=== PATIENT | female | born 1975 | race Caucasian/White ===

== ENCOUNTER 2019-02-15 08:21 | Emergency (ER) | payer MEDICAID ==
[2019-02-15] MEDS ORDERED: LORazepam 2 MG/ML SDV IM ONE (09:03)
[2019-02-15] MEDS ORDERED: Ketorolac 60 MG/2 ML SDV IM ONE (09:03)
--- NOTE | 2019-02-15 09:08 | EDM.PDOC ---
ED HPI GENERAL MEDICAL PROBLEM - General Chief Complaint: Lower Extremity Injury/Pain Stated Complaint: KNEE PAIN Time Seen by Provider: 02/15/19 09:01 Source of Information: Reports: Patient, Family, Provider, RN Notes Reviewed History Limitations: Reports: No Limitations - History of Present Illness INITIAL COMMENTS - FREE TEXT/NARRATIVE: 43-year-old female presents to emergency department today complaint right knee pain, she initially presented to the walk-in clinic Was called by the providers walking clinic felt he could not get her pain under control was subsequently transferred to the emergency department. She states she's had pain in this leg for about a week she does not recall any particular trauma may have twisted it this morning getting out of bed the pain has not been this severe for a week she was using a knee brace which did seem to help and then it got reactivated this morning difficult for her to bear weight Right Knee Pain Score (Numeric/FACES): 10 - Related Data Allergies Allergy/AdvReac Type Severity Reaction Status Date / Time No Known Allergies Allergy Verified 02/15/19 08:52 Home Meds: Home Meds Loratadine 10 mg PO DAILY 02/15/19 [History] predniSONE [Prednisone] 20 mg PO ASDIRECTED 02/15/19 [History] Past Medical History Psychiatric History: Reports: Depression Social & Family History - Tobacco Use Smoking Status *Q: Current Every Day Smoker Years of Tobacco use: 30 Packs/Tins Daily: 1 - Caffeine Use Caffeine Use: Reports: Coffee, Soda - Recreational Drug Use Recreational Drug Use: Yes Recreational Drug Type: Reports: Marijuana/Hashish Review of Systems - Review of Systems Review Of Systems: See Below Musculoskeletal: Reports: Joint Pain Neurological: Reports: No Symptoms ED EXAM, GENERAL - Physical Exam Exam: See Below Free Text/Narrative:: Examination of the right knee I don't appreciate any erythema there is no edema noted pedal pulses +2 she is very anxious and difficult to perform any exam as the slightest touch exacerbates the pain After pain control I was able to perform an exam I do not appreciate any erythema or pallor, she does have effusion around the patella she is tender to palpation along the medial and lateral joint lines she will tolerate flexion and extension, she is tender to both Weeks and valgus maneuvers Exam Limited By: No Limitations General Appearance: Alert, Moderate Distress Respiratory/Chest: No Respiratory Distress Course - Vital Signs Last Recorded V/S: Last Vital Signs Temp 98.0 F 02/15/19 08:42 Pulse 59 L 02/15/19 09:44 Resp 18 02/15/19 09:44 BP 127/55 L 02/15/19 09:44 Pulse Ox 98 02/15/19 09:44 - Orders/Labs/Meds Orders: Active Orders 24 hr Category Date Time Status DME for Discharge [COMM] Per Unit Routine Oth 02/15/19 10:06 Ordered Meds: Medications Discontinued Medications Generic Name Dose Route Start Last Admin Trade Name [place] PRN Reason Stop Dose Admin Fentanyl 50 mcg 02/15/19 09:38 02/15/19 09:43 Sublimaze IM 02/15/19 09:39 50 mcg ONETIME ONE Administration Ketorolac Tromethamine 60 mg 02/15/19 09:03 02/15/19 09:10 Toradol IM 02/15/19 09:04 60 mg ONETIME ONE Administration Lorazepam 1 mg 02/15/19 09:03 02/15/19 09:09 Ativan IM 02/15/19 09:04 1 mg ONETIME ONE Administration Departure - Departure Time of Disposition: 10:11 Disposition: Home, Self-Care 01 Condition: Fair Clinical Impression: Right knee pain Qualifiers: Chronicity: acute Qualified Code(s): M25.561 - Pain in right knee - Discharge Information Referrals: PCP,None [Primary Care Provider] - Forms: ED Department Discharge Additional Instructions: Use ibuprofen for baseline pain control, use hydrocodone for breakthrough pain please follow up with orthopedics this week - My Orders Last 24 Hours: My Active Orders 02/15/19 10:06 DME for Discharge [COMM] Per Unit Routine - Assessment/Plan Last 24 Hours: My Active Orders 02/15/19 10:06 DME for Discharge [COMM] Per Unit Routine Plan: Assessment Acuity = acute Site and laterality = right knee pain Etiology = unclear etiology Manifestations = joint effusion Location of injury = Home Lab values = x-ray is negative Plan She is placed in a hinged knee brace and crutches prescription written for hydrocodone 5/325 one tablet by mouth 3 times a day when necessary total #10, consultation with orthopedics is set up for this week This note was dictated using [email or web address] voice recognition software please call with any questions on syntax or grammar.
[2019-02-15] MEDS ORDERED: fentaNYL 100 MCG/2 ML SDV IM ONE (09:38)
--- NOTE | 2019-02-15 09:52 | CRLCR ---
INDICATION: Sudden pain, no known injury TECHNIQUE: Right knee 3 views. COMPARISON: None. FINDINGS: Bones: Alignment is normal. No fractures or bone lesions. Joint spaces: Unremarkable. No sign of joint effusion. Soft tissues: Unremarkable. IMPRESSION: Unremarkable right knee. Dictated by: Grzegorz Rudd MD @ 02/15/2019 09:50:25 (Electronically Signed)
== END 2019-02-15 11:10 | disposition home or self-care (01) ==
LOC: JP.ED 08:21
DX: M25.561 Pain in right knee (principal)
CPT/HCPCS: 73562; 96372; 99283; J1885; J2060; J3010

== ENCOUNTER 2019-02-21 06:00 | Day surgery (SDC) | payer MEDICAID ==
[2019-02-21] MEDS ORDERED: Lactated Ringers 1,000 ML IV SCH (06:30)
[2019-02-21] MEDS ORDERED: Bupivacaine 0.25% 10 ML SDV ONE (06:31)
[2019-02-21] MEDS ORDERED: Nozin Nasal Sanitizer NASBOTH ONE (07:00)
[2019-02-21] MEDS ORDERED: Dexamethasone 4 MG/ML SDV ONE (07:08)
[2019-02-21] MEDS ORDERED: fentaNYL 250 MCG/5 ML SDV ONE (07:08)
[2019-02-21] MEDS ORDERED: Neostigmine Methylsulfate 1 MG/ML 5 ML Syringe ONE (07:08)
[2019-02-21] MEDS ORDERED: Ondansetron 4 MG/2 ML SDV ONE (07:08)
[2019-02-21] MEDS ORDERED: Propofol 200 MG/20 ML SDV ONE (07:08)
[2019-02-21] MEDS ORDERED: Succinylcholine 200 MG/10 ML MDV ONE (07:08)
[2019-02-21] MEDS ORDERED: Rocuronium 50 MG/5 ML Vial ONE (07:08)
[2019-02-21] MEDS ORDERED: Glycopyrrolate 0.2 MG/ML 5 ML MDV ONE (07:08)
[2019-02-21] MEDS ORDERED: ceFAZolin 1 GM in Premix Bag 1 BAG IV ONE (07:15)
[2019-02-21] MEDS ORDERED: Ketorolac 60 MG/2 ML SDV ONE (07:47)
[2019-02-21] MEDS ORDERED: hydrOXYzine HCl 100 MG/2 ML SDV IM ONE (08:45)
[2019-02-21] MEDS ORDERED: Acetaminophen/HYDROcodone 325-5 MG Tab PO ONE (09:19)
[2019-02-21] MEDS ORDERED: Ketorolac 60 MG/2 ML SDV IM ONE (10:22)
--- NOTE | 2019-02-21 13:40 | OR ---
DATE OF PROCEDURE: 02/21/2019 PREOPERATIVE DIAGNOSES: 1. Right knee lateral meniscus tear. 2. Possible medial meniscus tear. 3. Chondromalacia. POSTOPERATIVE DIAGNOSES: 1. Posterior horn lateral meniscus tear. 2. Parameniscal cyst, anterior horn, lateral meniscus. 3. Chondromalacia of patella, grade 2. ANESTHESIA: General. INDICATIONS: Magda is a 43-year-old female with a history of acute on chronic right knee pain. She has been having difficulty off and on with intermittent pain and catching. Over the past week or so, she has had a couple of episodes of severe pain with inability to weightbear and a sensation that something is out of place or popping. Symptoms , findings, and MRI are consistent with a tear of the lateral meniscus. My reading of the MRI differs from the official Radiology reading and in my opinion shows tear near the posterior root of the lateral meniscus. Medial meniscus showed some degeneration and possible horizontal cleavage-type tear. She now presents for arthroscopic evaluation of the knee with partial meniscectomy versus repair as necessary. Also plan chondroplasty of the chondromalacia if needed. Risks, benefits, and potential complications of the procedure were discussed. PROCEDURE IN DETAIL: After adequate anesthesia was obtained, the patient was placed supine with a tourniquet above the right upper thigh. Right leg was prepped and draped in a sterile fashion. Leg was exsanguinated and tourniquet inflated to 300 mmHg. Standard lateral anterior portal was established. The scope was introduced. The patellofemoral joint was inspected. This revealed a grade 2 and early grade 3 changes in the lateral facet of the patella in the central portion. The scope was swept down along the medial femoral condyle and medial gutter. A spinal needle was used to confirm position for a medial portal. This was established with an 11 blade. A probe was introduced, and the medial meniscus was inspected. This revealed no evidence of full-thickness tear or significant horizontal cleavage. Some minor free edge fraying was present. Articular surfaces of the medial compartment were intact. Intercondylar notch showed intact ACL and PCL. Lateral compartment showed a parameniscal cyst just anterior to the anterior horn. This may represent a small partial thickness tear, which is evident now with the infiltration of fluid under pressure. The shaver was introduced and the cyst was de-roofed. This decompressed the cyst, and a punch basket was then used to debride the edges to allow to lie smooth against the tibial surface. The articular cartilage of the femoral condyle was intact. The tibial plateau showed grade 2 changes with the cartilage soft and friable. The posterior horn showed a vertical tear near the posterior root. A probe could be inserted in this, and the torn portion of the meniscus could be displaced into the joint. This was consistent with the patient's symptoms. The edges of the tear were roughened with a rasp and lightly abraded with the shaver. A Mitek meniscal anchor was then utilized. A 12-degree fiber optics supervisor was used. This was deployed into the torn fragment and then back into the posterior fragment. This was tightened down and then cut. An attempt was made at a 2nd anchor with a 24- degree fiber optics supervisor. This did not obtain adequate purchase in the capsule and had to be removed. A 2nd stitch was then placed with the 12-degree fiber optics supervisor, which got excellent purchase and provided good approximation of the torn edges. The knee was further evaluated. Shaver was used to perform a chondroplasty on the posterior aspect of the patella, removing all loose fragments. No other abnormalities were identified. Knee was drained. Scope was withdrawn. Port sites were closed with 2-0 Vicryl in an interrupted fashion. Steri-Strips were applied. Wounds were infiltrated with Marcaine and sterile dressing was applied. The patient tolerated the procedure well. There were no complications. She was taken from the operating room in stable condition. Kadeem Villa MD /[id number] LEATHA
== END 2019-02-21 10:40 | disposition home or self-care (01) ==
LOC: JP.SDS 06:00
PROVIDERS: ATTEND Specialist
DX: S83.281A Other tear of lateral meniscus, current injury, right knee, initial encounter (principal); S83.241A Other tear of medial meniscus, current injury, right knee, initial encounter; Z79.891 Long term (current) use of opiate analgesic; Z79.899 Other long term (current) drug therapy
CPT/HCPCS: 29881; 36415; 80048; 81025; 85027; A9270; C1713; J0330; J0690; J1100; J1885; J2405; J2704; J2710; J3010; J3410; J3490; J7120

== ENCOUNTER 2019-05-14 10:10 | Emergency (ER) | payer MEDICAID ==
[2019-05-14] MEDS ORDERED: Acetaminophen/oxyCODONE 325-5 MG Tab PO ONE (11:21)
--- NOTE | 2019-05-14 12:38 | EDM.PDOC ---
ED HPI GENERAL MEDICAL PROBLEM - General Chief Complaint: Lower Extremity Injury/Pain Stated Complaint: INJURED RT KNEE Time Seen by Provider: 05/14/19 12:38 Source of Information: Reports: Patient History Limitations: Reports: No Limitations - History of Present Illness INITIAL COMMENTS - FREE TEXT/NARRATIVE: pt arrived with pain ioin the rt knee. She felt something pop and she was having difficulty straitening the knee after that. She has some increased swellin of the knee. Onset: Today, Sudden, Other (pt did have surgery on the knee in February. ) Duration: Hour(s): Location: Reports: Lower Extremity, Right Associated Symptoms: Reports: No Other Symptoms - Related Data Allergies Allergy/AdvReac Type Severity Reaction Status Date / Time No Known Allergies Allergy Verified 05/14/19 10:37 Home Meds: Home Meds NK [No Known Home Meds] 05/14/19 [History] Past Medical History HEENT History: Reports: None Cardiovascular History: Reports: None Respiratory History: Reports: None Gastrointestinal History: Reports: None Genitourinary History: Reports: None STITCHER AROUND History: Reports: Musculoskeletal History: Reports: Other (See Below) Other Musculoskeletal History: s/p med/lateral meniscus repair 02/21/19 right knee Neurological History: Reports: None Psychiatric History: Reports: Depression Endocrine/Metabolic History: Reports: None Hematologic History: Reports: None Immunologic History: Reports: None Oncologic (Cancer) History: Reports: None Dermatologic History: Reports: None - Infectious Disease History Infectious Disease History: Reports: Chicken Pox - Past Surgical History Head Surgeries/Procedures: Reports: None Social & Family History - Family History Family Medical History: Noncontributory - Tobacco Use Smoking Status *Q: Current Every Day Smoker Years of Tobacco use: 20 Packs/Tins Daily: 0.5 - Caffeine Use Caffeine Use: Reports: Soda Review of Systems - Review of Systems Review Of Systems: See Below Constitutional: Reports: No Symptoms Eyes: Reports: No Symptoms Ears: Reports: No Symptoms Nose: Reports: No Symptoms Mouth/Throat: Reports: No Symptoms Respiratory: Reports: No Symptoms Cardiovascular: Reports: No Symptoms GI/Abdominal: Reports: No Symptoms Musculoskeletal: Reports: Other (pain in the rt knee and difficulty straighting it) ED EXAM, GENERAL - Physical Exam Exam: See Below Free Text/Narrative:: pt had surgery on the rt knee February 22 and she has been doing ok. She turned her knee hurt something pop and after that she was having difficulty straightening the rt knee. She not able to bear wt on it and she is having alot of pain with straightening Exam Limited By: No Limitations General Appearance: Alert Ears: Normal TMs Nose: Normal Inspection Throat/Mouth: Normal Inspection Head: Atraumatic Neck: Normal Inspection Respiratory/Chest: No Respiratory Distress Cardiovascular: Normal Peripheral Pulses, Regular Rate, Rhythm Extremities: Other ( rt knee is not hot, she is having alot of pain with . sHE IS HEARING A POPING SOUND. ) Course - Vital Signs Last Recorded V/S: Last Vital Signs Temp 35.8 C 05/14/19 10:42 Pulse 77 05/14/19 10:42 Resp 17 05/14/19 10:42 BP 120/61 05/14/19 10:42 Pulse Ox 98 05/14/19 10:42 - Orders/Labs/Meds Orders: Active Orders 24 hr Category Date Time Status Knee 3V Rt [CR] Stat Exams 05/14/19 11:21 Taken Meds: Medications Discontinued Medications Generic Name Dose Route Start Last Admin Trade Name Freq PRN Reason Stop Dose Admin Oxycodone/Acetaminophen 1 tab 05/14/19 11:21 05/14/19 11:33 Percocet 325-5 Mg PO 05/14/19 11:22 1 tab ONETIME ONE Administration - Re-Assessments/Exams Free Text/Narrative Re-Assessment/Exam: 05/14/19 12:45 XRAY WAS NEG WILL SCHEDULE A mri. Departure - Departure Time of Disposition: 12:36 Disposition: Home, Self-Care 01 Condition: Fair Clinical Impression: Meniscus degeneration - Discharge Information Referrals: PCP,None [Primary Care Provider] - Forms: ED Department Discharge Care Plan Goals: appt with Dr Oliva on thursday, MRI, crutches cool pack the knee. of the knee on Thursday, norco 5/325 q6h prn for pain - My Orders Last 24 Hours: My Active Orders 05/14/19 11:21 Knee 3V Rt [CR] Stat - Assessment/Plan Last 24 Hours: My Active Orders 05/14/19 11:21 Knee 3V Rt [CR] Stat
--- NOTE | 2019-05-14 12:53 | CRLCR ---
INDICATION: Severe right knee pain. Difficulty straightening the knee. TECHNIQUE: Three views of the right knee. COMPARISON: February 15, 2019. Correlation is made with an MRI of the right knee February 18, 2019. FINDINGS: No fracture, dislocation, erosion, or effusion. IMPRESSION: Negative right knee. No significant change. Dictated by Km Castillo MD @ May 14 2019 12:50PM Signed by Dr. Km Castillo @ May 14 2019 12:51PM
== END 2019-05-14 13:11 | disposition home or self-care (01) ==
LOC: JP.ED 10:10
DX: M23.306 Other meniscus derangements, unspecified meniscus, right knee (principal)
CPT/HCPCS: 73562; 99283; A9270

== ENCOUNTER → 2019-05-18 | Day surgery (SDC) | payer MEDICAID ==
[~2019-05-18] MED LIST: Albuterol/Ipratropium 3.0-0.5 MG/3 ML Neb Soln NEB ONE; Bupivacaine 0.25% 10 ML SDV ONE; Dexamethasone 4 MG/ML SDV ONE; Glycopyrrolate 0.2 MG/ML 5 ML MDV ONE; Lactated Ringers 1,000 ML IV SCH; Morphine 2 MG/ML Syringe IVPUSH ONE; Neostigmine Methylsulfate 1 MG/ML 5 ML Syringe ONE; Nozin Nasal Sanitizer NASBOTH ONE; Ondansetron 4 MG/2 ML SDV ONE; Propofol 200 MG/20 ML SDV ONE; Rocuronium 50 MG/5 ML Vial ONE; Succinylcholine 200 MG/10 ML MDV ONE; ceFAZolin 2 GM in Premix Bag 1 BAG IV ONE; fentaNYL 250 MCG/5 ML SDV ONE
--- NOTE | 2019-05-18 16:02 | OR ---
DATE OF PROCEDURE: 05/18/2019 PREOPERATIVE DIAGNOSIS: Recurrent lateral meniscus tear. POSTOPERATIVE DIAGNOSIS: Recurrent bucket-handle tear, lateral meniscus. PROCEDURE: Partial lateral meniscectomy. ANESTHESIA: General. INDICATIONS: Magda is a 43-year-old female who had previously experienced locking due to a bucket-handle tear of the lateral meniscus. She underwent a repair. She was doing extremely well and had returned to work, and unfortunately experienced a popping sensation while rolling over getting out of bed a few days ago. An MRI was completed, which confirmed a recurrence of the bucket-handle tear with displaced fragment into the notch. Exam and imaging are consistent with a locked bucket-handle tear. She is therefore taken to the operating room for evaluation. Risks, benefits, potential complications, and pros and cons of attempting a repeat repair versus partial meniscectomy were discussed. Opted for partial meniscectomy. DESCRIPTION OF PROCEDURE: After adequate anesthesia was obtained, the patient was placed supine with a tourniquet about the right upper thigh. Right leg was then prepped and draped in a sterile fashion. Leg was exsanguinated and tourniquet inflated to 300 mmHg pressure. Previous port sites were utilized and stab wounds were made with 11 blade and the scope was introduced. Patellofemoral joint was inspected, which again showed some mild to moderate chondromalacia with no loose articular fragments. Medial compartment showed an intact meniscus. This was probed and found to be stable. ACL and PCL were intact. Lateral compartment revealed a displaced bucket-handle tear. Meniscus was reduced beneath the condyle and did show some mild deformity. It should be noted that upon entering the knee, blood tinged effusion was present indicating at least some bleeding due to the recurrent tear. However, due to the mild deformity, failure of previous repair, and the patient's desire to return to work without waiting for healing of meniscal repair, a decision was made to proceed with resection. Using a combination of punch baskets and a shaver, the unstable fragment of the meniscus was removed. This was taken back to a stable margin. This left a very small rim along the posterior horn with the anterior portion of the midbody and anterior horn intact. All loose fragments were removed. The remaining portion of the meniscus was probed and remaining portions found to be stable. Knee was drained. Scope withdrawn. Port sites were closed in a standard fashion, infiltrated with Marcaine and a sterile dressing was applied. The patient tolerated the procedure well. There were no complications. She was taken from the operating room in stable condition. Kadeem Villa MD /[id number]
== END ==
LOC: JP.SDS 08:32
PROVIDERS: ATTEND Specialist
DX: S83.251A Bucket-handle tear of lateral meniscus, current injury, right knee, initial encounter (principal); M22.41 Chondromalacia patellae, right knee; K21.9 Gastro-esophageal reflux disease without esophagitis; F17.210 Nicotine dependence, cigarettes, uncomplicated; F32.9 Major depressive disorder, single episode, unspecified; E66.9 Obesity, unspecified; X58.XXXA Exposure to other specified factors, initial encounter; Z98.890 Other specified postprocedural states; Z68.31 Body mass index [BMI] 31.0-31.9, adult
CPT/HCPCS: 29881; 36415; 80048; 81025; 85027; A9270; J0690; J1100; J2270; J2405; J2704; J2710; J3010; J3490; J7120; J0330; J7620-GY

== ENCOUNTER 2023-05-07 13:13 | Emergency (ER) | payer MEDICAID ==
[2023-05-07] MEDS ORDERED: Bacitracin Oint 1 GM U/D Packet TOP ONE (14:18)
[2023-05-07] MEDS ORDERED: Lidocaine 1% 5 ML VIAL INJECT ONE (14:18)
== END 2023-05-07 15:10 | disposition home or self-care (01) ==
LOC: JP.ED 13:13
DX: S51.012A Laceration without foreign body of left elbow, initial encounter (principal); F17.210 Nicotine dependence, cigarettes, uncomplicated
CPT/HCPCS: 12001; 99282; 99283

== ENCOUNTER 2024-10-26 06:47 | Day surgery (SDC) | payer SELFPAY ==
[2024-10-26] MEDS ORDERED: Midazolam 1 MG/ML 2 ML SDV ONE (07:19)
[2024-10-26] MEDS ORDERED: Propofol 200 MG/20 ML SDV ONE (07:19)
[2024-10-26] MEDS ORDERED: fentaNYL 100 MCG/2 ML SDV ONE (07:19)
[2024-10-26] MEDS: Lactated Ringers 1,000 ML IV SCH (07:39)
== END 2024-10-26 10:34 | disposition home or self-care (01) ==
LOC: JP.SDS 06:47
PROVIDERS: ATTEND Surgery
DX: Z12.11 Encounter for screening for malignant neoplasm of colon (principal); K21.00 Gastro-esophageal reflux disease with esophagitis, without bleeding
CPT/HCPCS: 00813; 43239; 45330; 81025; 88305; J2250; J2704; J3010; J7120

== ENCOUNTER 2025-07-17 04:21 | Emergency (ER) | payer SELFPAY ==
[2025-07-17] MEDS: Ondansetron 4 MG Tab.DIS PO ONE (04:48)
[2025-07-17] MEDS: Ketorolac 30 MG/ML SDV IM ONE (04:48)
== END 2025-07-17 06:10 | disposition home or self-care (01) ==
LOC: JP.ED 04:21
DX: N20.2 Calculus of kidney with calculus of ureter (principal); N83.8 Other noninflammatory disorders of ovary, fallopian tube and broad ligament; E66.9 Obesity, unspecified; F17.200 Nicotine dependence, unspecified, uncomplicated; Z68.41 Body mass index [BMI] 40.0-44.9, adult
CPT/HCPCS: 74176; 96372; 99284; J1885; Q0162